=== PATIENT | male | born 1970 | race Asian ===

== ENCOUNTER 2018-11-01 20:58 | Emergency (ER) | payer OTHER ==
[~2018-11-01] VITALS: Ht 190.5 cm; Wt 89.8 kg
--- NOTE | 2018-11-01 21:10 | NUR ---
ED Nurse Note: pt walked in c/o lac on left 3rd finger, pt states he cut his finger table saw during work
[2018-11-01 21:11] VITALS: BP 133/90
[2018-11-01] MEDS ORDERED: Tetanus/Diptheria/Pertussis IM ONE (21:15)
[2018-11-01] MEDS ORDERED: Bacitracin Oint UD TOPIC ONE (21:15)
[2018-11-01] MEDS ORDERED: Bupivacaine 0.25% Inj 30ml INJ ONE (21:15)
[2018-11-01] MEDS ORDERED: Bupivacaine 0.5% Inj 30 ml vial INJ ONE (21:16)
--- NOTE | 2018-11-01 21:49 | Emergency Room Report ---
History of Present Illness General Chief Complaint: Laceration Source: Patient Present Illness HPI Patient doesn't his left middle finger on a table saw about 12:30 today. It bled for about a half an hour but the bleeding is controlled with pressure. His insisted he come into the emergency department. He is right-handed. 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 He denies any numbness. Part of the nail was cut. His tetanus is greater than 10 years. Pain rated 10/ 10, sharp and throbbing. Some radiation to forearm. Elevated cholesterol, DM and HTN. Allergies: Coded Allergies: No Known Allergies (Unverified , 11/01/18) Patient History Past Medical History: see triage record Social History: Reports: smoking; Denies: alcohol use Social History Narrative - sales Reviewed Nursing Documentation: PMH: Agreed; PSxH: Agreed Nursing Documentation-PMH Hx Hypertension: Yes Hx Diabetes: Yes Review of Systems Constitutional: Denies: fever Musculoskeletal: Reports: see HPI Skin: Reports: see HPI Neurological: Reports: see HPI Hematologic/Lymphatic: Reports: see HPI Physical Exam Vital Signs Date Time Temp Pulse Resp B/P (MAP) Pulse Ox O2 Delivery O2 Flow Rate FiO2 11/01/18 21:06 98.2 83 16 96 Room Air 11/01/18 21:11 133/90 Sp02 EP Interpretation: reviewed, normal General Appearance: well appearing, no apparent distress Head: normocephalic, atraumatic Eyes: bilateral eye normal inspection, bilateral eye PERRL ENT: hearing grossly normal, normal voice Neck: full range of motion, supple Respiratory: no respiratory distress, speaking full sentences Cardiovascular #1: regular rate, rhythm Cardiovascular #2: 2+ radial (R) - good capillary fill Gastrointestinal: normal inspection Musculoskeletal: gait/station normal, normal range of motion, other - ROM full digits Neurologic: alert, oriented x3, grossly normal Psychiatric: mood/affect normal Skin: other - Avulsed fingertip with devitalized tissue and a partial nail laceration Left middle finger Procedures Laceration/Wound Repair Laceration/Wound Repair : Consent: Verbal Wound Location: upper extremity - Left middle finger Wound's Depth, Shape: contused tissue, other - avulsed tip Wound Length (cm): 1 Wound Explored: clean - Devitalized tissue and some skin is gone Anesthesia: other - 0.25% bupivacaine digital block Wound Debrided: minimal Wound Repaired With: sutures Suture Size/Type: 5:0, nylon Layer Closure?: No Sterile Dressing Applied?: Yes Splint Applied?: No Patient Tolerated: Well Complications: None Medical Decision Making Diagnostic Impression: Primary Impression: Avulsion, finger tip Qualified Codes: S61.209A - Unspecified open wound of unspecified finger without damage to nail, initial encounter ER Course Patient presents post tablesaw injury with fingertip laceration and avulsed tissue. The bone is not exposed. There is devitalized tissue there. Irrigation, antibiotics, tetanus and a partial closure is undertaken. Patient tolerated procedure well. Discussed wound care with the patient. Patient is stable for outpatient observation and treatment. Last Vital Signs Date Time Temp Pulse Resp B/P (MAP) Pulse Ox O2 Delivery O2 Flow Rate FiO2 11/01/18 21:57 98.2 83 16 133/90 96 Room Air Status: improved Disposition: HOME, SELF-CARE Condition: Improved Scripts Ibuprofen* (MOTRIN*) 600 Mg Tablet 600 MG ORAL Q6H PRN for For Pain, #20 TAB Prov: Jimmy Salas MD 11/01/18 Cephalexin* (KEFLEX*) 500 Mg Capsule 500 MG ORAL EVERY 6 HOURS, #28 CAP Prov: Jimmy Salas MD 11/01/18 Referrals: [facility],REFERRING (PCP) Jimmy Salas MD November 01, 2018 21:49
[2018-11-01] MEDS ORDERED: CEPHALEXIN500 MG ORAL (21:52)
[2018-11-01] MEDS ORDERED: IBUPROFEN600 MG ORAL (21:52)
[2018-11-01 21:57] VITALS: BP 133/90
--- NOTE | 2018-11-01 21:58 | NUR ---
ER DISCHARGE NOTE: Patient is cleared to be discharged per ERMD, pt is aox4, on room air, with stable vital signs. pt was given dc and prescription instructions, pt was able to verbalize understanding, pt id band removed. pt is able to ambulate with steady gait. pt took all belongings.
[2018-11-01] MEDS ORDERED: Cephalexin 500mg cap ORAL ONE (22:00)
== END 2018-11-01 21:58 | disposition home or self-care (01) ==
LOC: EMR 21:28
DX: S61.209A Unspecified open wound of unspecified finger without damage to nail, initial encounter (principal); Z23 Encounter for immunization; W27.0XXA Contact with workbench tool, initial encounter; Y92.009 Unspecified place in unspecified non-institutional (private) residence as the place of occurrence of the external cause; I10 Essential (primary) hypertension; E11.9 Type 2 diabetes mellitus without complications; F17.200 Nicotine dependence, unspecified, uncomplicated
CPT/HCPCS: 12001; 90471; 90715; 99283; J3490